=== PATIENT | female | born 1985 | race Caucasian/White ===

== ENCOUNTER 2023-08-23 19:09 | Inpatient (IN) | payer OTHER, SELFPAY ==
[2023-08-23 19:22] VITALS: BMI 26.7
[2023-08-23] MEDS: LR 1000 IV ×2 (19:50→21:21)
[2023-08-23 20:06] LABS: % Basophils 0.2 % (0-2); % Eosinophils 0.3 % (0-6); % Immature Granulocytes 0.7 % (0-0.5); % Lymphocytes 9.2 % (20.5-51.1); % Monocytes 6.5 % (1.7-9.3); % Neutrophils 83.1 % (42.2-75.2); Absolute Immature Granulocytes 0.1 10^3/uL (0-0.05); Absolute Lymphocytes 1.4 10^3/uL (1.2-3.4); Absolute Neutrophils 12.7 10^3/uL (1.4-6.5); Hematocrit 35.5 % (37.0-47.0); Hemoglobin 12.8 g/dL (12.0-16.0); Mean Corp Hgb Conc. 36.1 g/dL (33.0-37.0); Mean Corpuscular Hgb 31.5 pg (27.0-31.0); Mean Corpuscular Volume 87.4 fL (81.0-99.0); Nucleated Red Blood Cells % 0 %; Platelet Count 166 10^3/uL (130-400); Red Blood Cell Count 4.06 10^6/uL (4.20-5.40); Red Cell Dist. Width 12.5 % (11.5-14.5); White Blood Cell Count 15.3 10^3/uL (4.8-10.8)
[2023-08-23 20:09] VITALS: BP 101/71
[2023-08-23] MEDS: SUBLIMAZE 100 MCG EPIDURAL (21:00)
[2023-08-23] MEDS: FENTANYL/BUPIVACAINE 100 EPIDURAL (21:00)
[2023-08-24] MEDS: LR 1000 IV (00:12)
[2023-08-24] MEDS: FENTANYL/BUPIVACAINE 100 EPIDURAL (04:40)
[2023-08-24] MEDS: PITOCIN 30 UNITS/NSS 500 ML IV (08:00)
[2023-08-24] MEDS: MOTRIN 600 MG PO (14:07)
[2023-08-25] MEDS: MOTRIN 600 MG PO ×2 (03:59→13:47)
[2023-08-25 04:24] LABS: Hematocrit 33.2 % (37.0-47.0); Hemoglobin 11.7 g/dL (12.0-16.0)
[2023-08-25] MEDS: PRENATAL PLUS 1 TABLET PO (09:15)
[2023-08-25] MEDS: SENOKOT-S 1 TABLET PO (09:15)
[2023-08-26] MEDS: PRENATAL PLUS 1 TABLET PO (09:38)
[2023-08-28 16:20] LABS: Syphilis/T. pallidum Ab Reflex Negative (Negative)
== END 2023-08-26 12:16 | disposition home or self-care (01) | DRG 807 ==
LOC: LDRP 19:09
PROVIDERS: Obstetrics & Gynecology; ADMITTING PHYSICIAN Obstetrics & Gynecology
PROC: 10E0XZZ Delivery of Products of Conception, External Approach (ICD-10-PCS; 2023-08-24)
PROC: 0KQM0ZZ Repair Perineum Muscle, Open Approach (ICD-10-PCS; 2023-08-24)
DX: O42.02 Full-term premature rupture of membranes, onset of labor within 24 hours of rupture (principal); Z37.0 Single live birth; Z3A.40 40 weeks gestation of pregnancy; O70.1 Second degree perineal laceration during delivery; O77.0 Labor and delivery complicated by meconium in amniotic fluid; Z88.0 Allergy status to penicillin
CPT/HCPCS: 88307; 59025; 76815; 85014; 85018; 85025; 86780; 86850; 86900; 86901

== ENCOUNTER → 2024-08-14 11:15 | Outpatient (REF) | payer OTHER, SELFPAY | LOC: PNTC 11:15 | PROVIDERS: ATTENDING PHYSICIAN Obstetrics & Gynecology | DX: Z36.0 Encounter for antenatal screening for chromosomal anomalies (principal); Z36.82 Encounter for antenatal screening for nuchal translucency | CPT/HCPCS: 76801; 76813 ==

== ENCOUNTER → 2025-01-22 14:29 | Outpatient (REF) | payer OTHER, SELFPAY | LOC: PNTC 14:29 | PROVIDERS: ATTENDING PHYSICIAN Obstetrics & Gynecology | DX: O09.529 Supervision of elderly multigravida, unspecified trimester (principal); O09.819 Supervision of pregnancy resulting from assisted reproductive technology, unspecified trimester | CPT/HCPCS: 59025; 76815 ==

== ENCOUNTER 2025-02-01 06:05 | Inpatient (IN) | payer OTHER, SELFPAY ==
[2025-02-01 06:29] VITALS: BP 140/86; BMI 28.4
[2025-02-01 06:57] LABS: Hematocrit 37.4 % (37.0-47.0); Hemoglobin 12.9 g/dL (12.0-16.0); Mean Corp Hgb Conc. 34.5 g/dL (33.0-37.0); Mean Corpuscular Volume 87.6 fL (81.0-99.0); Nucleated Red Blood Cells % 0 %; Platelet Count 173 10^3/uL (130-400); Red Cell Dist. Width 13.2 % (11.5-14.5)
[2025-02-01] MEDS: PITOCIN 30 UNITS/NSS 500 ML IV (07:25)
[2025-02-01] MEDS: SYNTHROID 25 MCG PO (08:22)
[2025-02-01] MEDS: PRENATAL PLUS PO (08:22)
[2025-02-01] MEDS: TYLENOL 650 MG PO ×2 (11:50→21:03)
[2025-02-01] MEDS: COLACE 100 MG PO (20:47)
[2025-02-02 05:41] LABS: Hematocrit 33.1 % (37.0-47.0); Hemoglobin 11.4 g/dL (12.0-16.0)
[2025-02-02] MEDS: SYNTHROID 25 MCG PO (06:23)
[2025-02-02] MEDS: COLACE 100 MG PO (07:52)
[2025-02-02] MEDS: PRENATAL PLUS 1 TABLET PO (07:52)
[2025-02-03 12:56] LABS: Syphilis/T. pallidum Ab Reflex Negative (Negative)
== END 2025-02-02 15:26 | disposition home or self-care (01) | DRG 807 ==
LOC: LDRP 06:05
PROVIDERS: ADMITTING PHYSICIAN Obstetrics & Gynecology
PROC: 10E0XZZ Delivery of Products of Conception, External Approach (ICD-10-PCS; 2025-02-01)
PROC: 0KQM0ZZ Repair Perineum Muscle, Open Approach (ICD-10-PCS; 2025-02-01)
DX: O42.02 Full-term premature rupture of membranes, onset of labor within 24 hours of rupture (principal); Z37.0 Single live birth; Z3A.37 37 weeks gestation of pregnancy; O62.3 Precipitate labor; O70.1 Second degree perineal laceration during delivery; N97.9 Female infertility, unspecified; O99.284 Endocrine, nutritional and metabolic diseases complicating childbirth; E03.9 Hypothyroidism, unspecified; Z88.0 Allergy status to penicillin; Z79.890 Hormone replacement therapy
CPT/HCPCS: 85014; 85018; 85025; 86780; 86850; 86900; 86901